=== PATIENT | female | born 1945 | race Caucasian/White ===

== ENCOUNTER 2019-04-16 17:56 | Emergency (ER) | payer MEDICARE ==
[2019-04-16] MEDS ORDERED: methylPREDNISolone Acetate 40 mg/ml Vial ONE (18:16)
[2019-04-16] MEDS ORDERED: Naproxen 500 MG TAB ONE (18:16)
== END 2019-04-16 18:40 | disposition home or self-care (01) ==
LOC: NAV ERS 17:56
DX: T63.441A Toxic effect of venom of bees, accidental (unintentional), initial encounter (principal); E78.5 Hyperlipidemia, unspecified; I10 Essential (primary) hypertension; Z79.899 Other long term (current) drug therapy
CPT/HCPCS: 96372; 99282; J1030